=== PATIENT | female | born 1975 | race Caucasian/White ===

== ENCOUNTER 2020-01-15 13:55 | Inpatient (IN) | payer OTHER, SELFPAY ==
[2020-01-15 14:17] VITALS: BP 133/89; PULSE 67; RESP 14; TEMP 35.7; O2SAT 98
--- NOTE | 2020-01-15 15:37 | ECG_ITS ---
Measurements Intervals [place] Rate: 73 P: 24 HI: 170 QRS: 19 QRSD: 93 T: 10 QT: 394 QTc: 435 Interpretive Statements SINUS RHYTHM BORDERLINE T WAVE ABNORMALITY- ANTEROLATERAL LEADS BORDERLINE ECG Electronically Signed On 01-16-2020 9:25:42 STAFF PHYSICIAN by Greg Lechuga D.O.
[2020-01-15 16:00] VITALS: BP 124/70; PULSE 79; PULSE 80; RESP 12; TEMP 36.8; O2SAT 98
--- NOTE | 2020-01-15 16:31 | PM.IMHP ---
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 She describes her chest discomfort as a mid sternal sharp/pressure that radiates into her left shoulder and left arm to her wrist. The discomfort started on Sunday. It lasted approximately 5 minutes and occurred off and on Sunday and Sunday. She denied any feeling of shortness of breath but felt that she could not get in a deep breath. A few times she had a hot and cold feeling with some diaphoresis. She denied any associated nausea, lightheadedness or palpitations. The discomfort continued on Sunday and Sunday off and on but this morning approximately 3:00 a.m. she had a ?awful? discomfort and an increase in the intensity of the pain. She noted that they aching discomfort increased with movement such as walking and was better at rest. Again the discomfort waxed and waned but never completely resolved so she sought medical attention. In the emergency room at [place] she was given aspirin, nitroglycerin x2 with some relief of the discomfort but it did not completely resolve her pain. At the time of our interview she reports that her discomfort is a 1/10 without radiation into her arm. EKG reviewed from [place] revealed no ischemic changes. Initial troponin was negative at 0.028 but then nick to 0.076. 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 She does report headache, fatigue, occasional shortness of breath and dry cough. She denied any loss taste or smell. Review of Systems Constitutional: Constitutional: Denies chills, Reports difficulty sleeping (She falls asleep but has difficulty staying asleep. Sleeps approx 4 hr ), Reports fatigue, Denies fever(s), Reports headache(s), Reports night sweats, Reports snoring, Denies weight gain and Denies weight loss Eyes: Eyes: Denies blurry vision, Denies change in vision, Denies loss of vision and Denies photophobia ENT: Reports Normal hearing present, Denies dizziness, Denies hearing loss, Denies hoarseness, Denies epistaxis, Denies nasal discharge, Denies throat swelling and Denies tongue swelling Cardiovascular: Cardiovascular: Reports chest pain (Midsternal, sharp/pressure), Denies diaphoresis, Denies syncope, Denies pedal edema, Denies irregular heart rhythm, Denies leg edema, Denies lightheadedness, Reports radiating jaw, neck or arm pain (Radiating to left shoulder and arm to approximately wrist), Denies palpitations, Reports dyspnea (Feels that she cannot get in a deep breath), Denies orthopnea and Denies paroxysmal nocturnal dyspnea Respiratory: Respiratory: Reports cough (Dry/occasional), Denies hemoptysis, Reports snoring and Denies wheezing Gastrointestinal: Gastrointestinal: Denies abdominal pain, Denies belching, Denies bloating, Denies change in bowel habits, Denies constipation, Denies dysphagia, Denies heartburn, Denies diarrhea, Denies loose stools, Denies nausea, Denies vomiting and Denies hematemesis Genitourinary: Genitourinary: Denies hematuria Musculoskeletal: Musculoskeletal: Reports myalgias (General after working a 12 hour shift in emergency room), Denies muscle weakness, Denies numbness and Denies stiffness Integumentary/Breasts: Skin/Breast: Denies breast mass, Denies alopecia, Denies pruritus, Denies change in nails, Denies erythema, Denies rash and Denies unusual bruising Neurologic: Reports Normal hearing present, Denies behavioral changes, Denies dizziness, Denies syncope, Reports headache(s) (3-4 times per week) and Reports restless legs Psychiatric: Psychiatric: Reports anxiety, Reports depression, Denies homicidal ideation and Denies suicidal ideation Endocrine: Endocrine: Denies cold
[2020-01-15 17:03] LABS: Troponin I 0.112 ng/mL (0.000-0.034)
[2020-01-15] MEDS: ACETAMINOPHEN 500 MG TABLET 1000 MG PO (17:52)
[2020-01-15 18:00] VITALS: PULSE 83
[2020-01-15 18:13] VITALS: BMI 37.0
[2020-01-15] MEDS: VENLAFAXINE HCL XR 75 MG CAP.ER.24H 150 MG PO (18:15)
[2020-01-15] MEDS: PANTOPRAZOLE 40 MG TABLET PO (18:15)
[2020-01-15] MEDS: lisinopriL 10 MG TABLET PO (18:15)
--- NOTE | 2020-01-15 18:39 | ADMGEN ---
This patient, Eleanor Lee, was admitted to IMU Room 211-01 at 1350. Patient/family oriented to hospital policies and general routines including ID bracelet, bed and alarms, visiting hours, pain management, procedures, bathroom and other care routines, personal items, smoking policy, room service/diet, and visiting hours. Information on how to activate the Rapid Response Team has been discussed. Patient/Family are encouraged to report perceived risks to care and to ask questions if they do not understand what they are told or what they should do.
[2020-01-15 20:00] VITALS: BP 145/96; PULSE 78; PULSE 86; RESP 16; TEMP 36.1; O2SAT 98
[2020-01-15] MEDS: ENOXAPARIN 100 MG/ML SYRINGE 98 MG SUB-Q (20:10)
[2020-01-15 22:00] VITALS: PULSE 73
[2020-01-15 23:33] LABS: Troponin I 0.093 ng/mL (0.000-0.034)
[2020-01-16] VITALS (32 sets, daily range): BP systolic 114–159; BP diastolic 69–103; PULSE 59–90; RESP 9–19; TEMP 36–36.6; O2SAT 94–100
[2020-01-16 06:44] LABS: SARS-CoV-2 RNA PCR Negative
--- NOTE | 2020-01-16 08:00 | ECG_ITS ---
Measurements Intervals [place] Rate: 76 P: 16 IA: 178 QRS: 8 QRSD: 77 T: -6 QT: 386 QTc: 435 Interpretive Statements SINUS RHYTHM LOW QRS VOLTAGE IN PRECORDIAL LEADS BORDERLINE T WAVE ABNORMALITY- ANTEROLAT/INF LEADS BORDERLINE ECG Electronically Signed On 01-16-2020 9:44:41 INTERMEDIATE PROJECT MANAGER by Greg Lechuga D.O.
[2020-01-16] MEDS: ASPIRIN 81 MG ENTERIC TABLET PO (09:32)
[2020-01-16] MEDS: ACETAMINOPHEN 500 MG TABLET 1000 MG PO ×2 (09:32→19:56)
[2020-01-16] MEDS: lisinopriL 10 MG TABLET PO (09:33)
[2020-01-16] MEDS: VENLAFAXINE HCL XR 75 MG CAP.ER.24H 150 MG PO (09:33)
--- NOTE | 2020-01-16 13:54 | ECG_ITS ---
Measurements Intervals [place] Rate: 68 P: 43 HI: 188 QRS: 29 QRSD: 92 T: -18 QT: 404 QTc: 431 Interpretive Statements SINUS RHYTHM WITH SINUS ARRHYTHMIA BORDERLINE ST-T WAVE ABNORMALITY- ANT/INF LEADS BORDERLINE ECG Electronically Signed On 01-16-2020 14:27:23 SENIOR GRANT WRITER by Greg Lechuga D.O.
--- NOTE | 2020-01-16 13:58 | WPDCARDPROC ---
Cardiac Cath Procedure Note Date of procedure:: 01/16/20 Performing physician:: Rizwan Martinez MD Indication:: chest pain/acute coronary syndrome Brief clinical history:: this is a 44-year-old woman with hypertension, no previous known history of overt coronary disease. She has recent intermittent episodes of chest pain that have largely atypical features of angina. Despite this her troponin levels did rise modestly resulting in the need for angiography. Procedure Procedure performed:: Left heart catheterization with left ventriculography and coronary angiography PCI (JOI) to mid to distal RCA. Sedation/Medication given:: Fentanyl 50 mg Versed 2 mg case start time 1:06 p.m. case end time 1:50 p.m. sedation provided by Elisha Golden RN, trained observer Access site:: right femoral artery Estimated blood loss:: 20-30 cc Procedure note:: patient was brought to the cardiac catheterization lab in the postabsorptive state the right femoral triangle was prepared and draped in the usual fashion. Anesthesia was provided with 1% lidocaine infiltrated locally. Using the modified Seldinger technique a 5 Gren[place] sheath was placed into the right femoral artery after this left heart catheterization was carried out a 5 [place] angled pigtail catheter was used to document left-sided hemodynamics and to injected LV g in the LÓPEZ projection after this I used a standard 6 [place] FL4 catheter to engage inject the left coronary artery in multiple projections. A 6 [place] JR4 catheter was used to engage inject the right coronary artery. The torque on the right coronary catheter resulted in several times the catheter being dislodged from the ostium of the vessel. Following this the cineangiograms were reviewed and PCI of the right coronary artery was recommended and carried out as detailed below. Prior to PCI the 5 [place] sheath was changed out over a guidewire for 6 Gren[place] device. After this the patient was systemically anticoagulated with Angiomax and received aspirin and Brilinta 180 mg p.o. prior to the intervention. Because of the somewhat challenging RCA engaged with the Trisha catheter I used a 6 Gren[place] WRP guiding catheter for the intervention. Following PCI as detailed below the sheath was sutured into position the patient was taken to the holding area for recovery and subsequent sheath removal. Procedure was well tolerated there were no apparent complications. Findings:: Hemodynamics: Central aortic pressure is 144/78 left ventricle 140/0 end-diastolic pressure of 6 there is no significant gradient pullback across the aortic valve. Left ventricle: The LV is of normal size all segments contract appropriately the global ejection fraction is 50-55% by visual estimation without wall motion abnormalities. The left main coronary artery is nicely patent. the left anterior descending is a moderate caliber artery extending down to the apex the LAD has minimal plaquing in the midportion representing no more than about 30-40% stenosis. There is YARIEL 3 flow in the LAD. Circumflex is a smaller caliber vessel there is a ostial circumflex plaque narrowing the vessel to about 40-50%. A very high OM1 branch which is very small is originating from this area of disease and itself has an ostial stenosis of 50-60%. Right coronary artery is moderate to large in caliber and dominant to the posterior circulation. The mid to distal RCA has significant area of atherosclerosis starting with very mild 20-30% tubular stenosis and then ridden progressing into the 3rd portion where there is 95% stenosis and sequential 80% stenosis just prior to the bifurcation. The RPDA and RPL branches are free of significant lesions. Intervention: The RCA was engaged using the WRP guiding catheter. A 0.014 BMW guidewire was placed into the distal RCA and out into the RPL system. The area of disease was pre-dilated using a 2.5 x 20 mm emerge PTCA balloon. Following
--- NOTE | 2020-01-16 15:02 | PC.NURSE ---
Patient off of floor in Cardiac Cath Procedure during 1200 rounds and assessments. Will reassess upon patients' return.
--- NOTE | 2020-01-16 16:29 | SUR.PHASEII ---
MANUAL 6FR SHEATH PULL FROM R. FEMORAL ARTERY PUNCTURE SITE BY DWAINE Kelley RN PER PROTOCOL. FIRM, STEADY MANUAL PRESSURE TO SITE UNTIL HEMOSTASIS ACHIEVED. PT. TOLERATING WELL. WILL CONTINUE TO MONITOR.
--- NOTE | 2020-01-16 18:23 | PC.NURSE ---
This patient, Eleanor Lee, was received from [facility] on 01/16/20 at 1815. Patient/family oriented to unit policies and routines
--- NOTE | 2020-01-16 18:49 | PC.NURSE ---
Completed out orders that were performed in the [facility] prior to patient coming back to floor in room 207
[2020-01-16] MEDS: METOPROLOL TARTRATE 25 MG TABLET PO (19:57)
[2020-01-16] MEDS: TICAGRELOR 90 MG TABLET PO (19:58)
[2020-01-16] MEDS: SODIUM CHLORIDE 0.9% IV 1,000 ML 125 ML IV CONT (20:00)
[2020-01-17] VITALS (8 sets, daily range): BP systolic 133–137; BP diastolic 69–79; PULSE 59–87; RESP 18; TEMP 35.8–36.1; O2SAT 98–100
[2020-01-17] MEDS: ACETAMINOPHEN 500 MG TABLET 1000 MG PO (03:59)
--- NOTE | 2020-01-17 05:11 | ECG_ITS ---
Measurements Intervals [place] Rate: 73 P: 23 AR: 171 QRS: 12 QRSD: 89 T: -25 QT: 417 QTc: 460 Interpretive Statements SINUS RHYTHM NONSPECIFIC ST & T-WAVE ABNORMALITY- ANTEROLAT/INF LEADS BORDERLINE ECG Electronically Signed On 01-17-2020 10:04:56 DIRECTOR OF INTEGRATED MARKETING by Greg Lechuga D.O.
--- NOTE | 2020-01-17 09:00 | PM.PNCARD ---
Progress Note: A&P Additional Plan 44-year-old white female with new diagnosis of coronary artery disease presenting with acute coronary syndrome. Her symptoms were rather atypical for ischemia. She underwent successful PCI of her target lesion in the right coronary yesterday as detailed in the catheterization report. She does have non flow limiting disease at the ostium of a small circumflex. Spoke to the patient about this and she should be treated medically for this at this time. Patient will be discharged today on current medical regimen and followed up in the office. Stressed the importance of compliance with dual anti-platelet therapy for the foreseeable future. Rizwan Martinez MD LOCATED [facility]IN [facility] Subjective Date/time seen: Date of service: 01/17/20 09:00 Interval history: 44-year-old white female with: Acute coronary syndrome with somewhat complex high-grade distal RCA stenosis treated successfully yesterday with PCI using a drug-eluting stent to the distal to mid RCA. Patient is asymptomatic this morning feels well and appears to be a good candidate for discharge Exam Const: General: comfortable and no acute distress Eyes: Sclera: sclerae normal Pupils: Equal, round and reactive pupils present Neck: Neck: supple and no JVD Resp: Effort & Inspection: normal respiratory effort Auscultation: clear to auscultation bilaterally Cardio: Rate: regular rate Rhythm: regular rhythm Other: No murmur no gallop no rub GI: GI Palp: Yes Soft to palpation Auscultation: normal bowel sounds Skin: General skin exam: normal color Neuro: Cognition (Neuro): normal cognition Objective Data Vital Signs Vital Signs: Vital Signs - 24 hr 01/16/20 09:30 01/16/20 10:00 01/16/20 11:44 Temperature 36.6 C 36.6 C Pulse Rate 83 74 82 Respiratory Rate 16 14 Blood Pressure 130/74 128/87 Pulse Oximetry 97 96 01/16/20 12:00 01/16/20 14:05 01/16/20 14:15 Temperature 36.3 C L 36.4 C L Pulse Rate 79 79 76 Respiratory Rate 16 19 18 Blood Pressure 141/86 H 150/94 H 159/87 H Pulse Oximetry 95 100 99 01/16/20 14:30 01/16/20 14:45 01/16/20 15:00 Temperature Pulse Rate 69 73 68 Respiratory Rate 16 10 L 10 L Blood Pressure 144/103 H 155/88 H 151/88 H Pulse Oximetry 98 98 94 01/16/20 15:30 01/16/20 16:00 01/16/20 16:29 Temperature Pulse Rate 73 64 85 Respiratory Rate 12 13 14 Blood Pressure 139/86 153/92 H 133/84 Pulse Oximetry 99 98 100 01/16/20 16:35 01/16/20 16:45 01/16/20 16:55 Temperature Pulse Rate 73 65 70 Respiratory Rate 14 14 14 Blood Pressure 142/89 H 132/99 H 129/92 H Pulse Oximetry 100 100 100 01/16/20 17:00 01/16/20 17:15 01/16/20 17:30 Temperature Pulse Rate 78 73 76 Respiratory Rate 14 9 L 18 Blood Pressure 146/95 H 131/89 148/88 H Pulse Oximetry 100 99 100 01/16/20 17:45 01/16/20 18:00 01/16/20 18:21 Temperature Pulse Rate 75 73 84 Respiratory Rate 12 13 Blood Pressure 138/92 H 156/103 H Pulse Oximetry 99 99 01/16/20 18:35 01/16/20 19:39 01/16/20 19:57 Temperature 36.2 C L 36.1 C L Pulse Rate 79 71 78 Respiratory Rate 12 14 Blood Pressure 135/98 H 128/78 Pulse Oximetry 98 98 01/16/20 20:00 01/16/20 22:00 01/16/20 23:39 Temperature 36.4 C L Pulse Rate 76 68 59 L Respiratory Rate 18 Blood Pressure 114/69 Pulse Oximetry 99 01/17/20 00:00 01/17/20 02:00 01/17/20 03:39 Temperature 36.1 C L Pulse Rate 59 L 76 87 Respiratory Rate 18 Blood Pressure 137/69 Pulse Oximetry 100 01/17/20 04:00 01/17/20 06:00 01/17/20 07:39 Temperature 35.8 C L Pulse Rate 80 75 72 Respiratory Rate 18 Blood Pressure 133/79 Pulse Oximetry 98 Intake/Output Intake/Output: Intake & Output 01/14/20 01/15/20 01/16/20 01/17/20 23:59 23:59 23:59 23:59 Intake Total 789 084 1735 Output Total 1140 750 Balance 500 -700 250 Meds/Results Medications: Active Medications Generic Name Dose Route Start Last Admin Trade Name Fr
[2020-01-17] MEDS: VENLAFAXINE HCL XR 75 MG CAP.ER.24H 150 MG PO (09:19)
[2020-01-17] MEDS: ROSUVASTATIN 10 MG TABLET PO (09:20)
[2020-01-17] MEDS: ASPIRIN 81 MG CHEWABLE TABLET PO (09:20)
[2020-01-17] MEDS: lisinopriL 10 MG TABLET PO (09:20)
[2020-01-17] MEDS: TICAGRELOR 90 MG TABLET PO (09:20)
--- NOTE | 2020-01-17 09:25 | PM.DS ---
DS: Admitting Diagnosis Admitting Diagnosis Admitting Diagnosis: Acute Coronary Syndrome/PCI to RCA DS: Discharge Diagnosis Discharge Diagnosis (1) Coronary artery disease: Code(s): I25.10 - Atherosclerotic heart disease of knik coronary artery without angina pectoris Status: Acute (2) Stented coronary artery: Code(s): Z95.5 - Presence of coronary angioplasty implant and graft Status: Acute DS: Summary Hospital Course Reason for hospitalization: Chest pain Hospital Course: This is a 44-year-old woman with hypertension and no previous history of coronary disease. She presented to the hospital with an intermittent history of chest pain that was largely atypical of angina. Despite this and a normal ECG there was ever modest rise in troponin prompting the recommendation to perform an angiogram. She was found to have high-grade critical stenosis of the distal RCA with modest area of disease from the midportion extending into that lesion. She also had a mild non flow-limiting stenosis at the ostium of her circumflex. Left ventricular systolic function was found to be normal. PCI of the right coronary artery was recommended and carried out successfully. The details of that are in the separately dictated cardiac catheterization lab note. She received a drug-eluting stent from the mid to distal RCA with an excellent anatomical result. Today the patient appears to be a good candidate for discharge she is ambulatory and asymptomatic. Discharge medicines are detailed below. She of course was placed on dual anti-platelet therapy beta-abe and statin. Follow-up in the office is scheduled in 2-3 weeks. She was told not to lift more than 20 lb for the next 5 days is to remain off of work for next week. Status at Discharge Functional status at discharge: independent ambulation Overall status at discharge: patient is back to baseline Time Spent with Patient Time attestation: Total time spent providing and/or coordinating discharge services: Time spent: Less than 30 minutes Exam Const: General: comfortable and no acute distress HENMT: Mouth: Yes moist mucous membranes Eyes: Sclera: sclerae normal Pupils: Equal, round and reactive pupils present Neck: Neck: supple and no JVD Resp: Effort & Inspection: normal respiratory effort Auscultation: clear to auscultation bilaterally Cardio: Rate: regular rate Rhythm: regular rhythm GI: GI Palp: Yes Soft to palpation Auscultation: normal bowel sounds Skin: General skin exam: normal color Neuro: Other: Normal cognition, mental status Extrem: General: normal to inspection Discharge Plan Discharge Attending physician on discharge: Rizwan Martinez Discharging Clinician: Rizwan Martinez Patient Disposition: Home, Self-Care Activity: other - see discharge instructions Diet: heart healthy Wound Care Instructions: other - see discharge instructions Discharge Instructions: ACTIVITY: No driving until Saturday, January 18, 2020. This is for short distances only. No lifting, pushing or pulling more than 10 pounds for 1 week. No strenuous exercise or activity for 2 weeks. May start gentle walking program in 1 week. May shower but no tub baths or swimming pool for 1 week. Avoid commercial hot tubs. They are too hot. May return to work on Sunday, January 26, 2020. DO NOT STOP YOUR MEDICATIONS! ONLY YOUR AP[employer] DEAN CAN STOP THE FOLLOWING MEDICATIONS: Aspirin Brilinta Rosuvastatin Lisinopril Metoprolol tartrate PLEASE CALL THE OFFICE IF THESE MEDICATIONS NEED TO BE STOPPED You should avoid NSAIDs such as ibuprofen or naproxen due to prevent GI bleeding due to aspirin and Brilinta. Keep your stent card in your wallet at all times Read food labels for high levels of sodium, no added salt, avoid fried foods, eat more fruits and vegetables. Stay hydrated. If you have chest pain unrelieved by rest call [address]
[2020-01-17] MEDS: METOPROLOL SUCCINATE EXT REL 50 MG TABCR PO (09:39)
== END 2020-01-17 09:48 | disposition home or self-care (01) | DRG 247 ==
PROVIDERS: Nurse Practitioner Adult Health; Admitting Provider Specialist; PCP Physician Assistant; Visit Provider Specialist
PROC: 4A023N7 Measurement of Cardiac Sampling and Pressure, Left Heart, Percutaneous Approach (ICD-10-PCS; CPT 93452; principal; 2020-01-16 12:45)
PROC: 027034Z Dilation of Coronary Artery, One Artery with Drug-eluting Intraluminal Device, Percutaneous Approach (ICD-10-PCS; 2020-01-16 12:45)
DX: I25.10 Atherosclerotic heart disease of native coronary artery without angina pectoris (principal); I10 Essential (primary) hypertension; Z20.828 Contact with and (suspected) exposure to other viral communicable diseases; R77.8 Other specified abnormalities of plasma proteins; F32.9 Major depressive disorder, single episode, unspecified; F41.9 Anxiety disorder, unspecified; F17.200 Nicotine dependence, unspecified, uncomplicated; Z79.899 Other long term (current) drug therapy; Z88.0 Allergy status to penicillin; Z95.5 Presence of coronary angioplasty implant and graft
CPT/HCPCS: 36415; 84484; 87635; 93005; 93458; A9270; C1725; C1769; C1874; C1887; C1894; C9600; C9803; J0583; J1644; J1650; J2250; J3010; J7030; J7040; U0003